=== PATIENT | female | born 1970 | race Caucasian/White ===

== ENCOUNTER → 2017-09-02 | Outpatient (CLI) | payer OTHER ==
[2017-09-02 14:22] LABS: VITAMIN D, 25-HYDROXY 23.7 ng/mL (30-100)
[2017-09-03 13:04] LABS: ANTI-DSDNA ANTIBODIES 096339 <1 IU/mL (0-9); ANTISCLERODERMA-70 AB 0.5 AI (0.0-0.9)
== END | disposition home or self-care (01) ==
LOC: LAB 10:59
PROVIDERS: Family Medicine
DX: M79.1 Myalgia (principal); M25.50 Pain in unspecified joint; R53.83 Other fatigue; E55.9 Vitamin D deficiency, unspecified

== ENCOUNTER → 2018-03-01 | Outpatient (CLI) | payer OTHER ==
[2018-03-02 08:31] LABS: RHEUMATOID ARTHRITIS FACTOR <10.0 IU/mL (0.0-13.9)
[2018-03-03 00:03] LABS: CCP ANTIBODIES IGG/IGA 7 units (0-19)
== END | disposition home or self-care (01) ==
LOC: LAB 13:13
PROVIDERS: Family Medicine
DX: M79.672 Pain in left foot (principal); M79.671 Pain in right foot; M79.642 Pain in left hand; M79.641 Pain in right hand; E55.9 Vitamin D deficiency, unspecified

== ENCOUNTER → 2018-10-17 | Outpatient (CLI) | payer OTHER ==
[2018-10-17 10:24] LABS: HEMATOCRIT 40.5 % (37.0-47.0); HEMOGLOBIN 13.4 g/dl (12.0-16.0); MEAN CORPUSCULAR HGB 31.8 pg (27.0-31.0); MEAN CORPUSCULAR HGB CONC 33.1 g/dl (33.0-37.0); MEAN PLATELET VOLUME 9.3 fl (9.6-12.3); RED BLOOD COUNT 4.22 10*6/uL (4.10-5.10); RED CELL DISTRI WIDTH 12.6 % (0-14.5); WHITE BLOOD COUNT 7.1 10*3/uL (4.8-10.8)
[2018-10-17 10:50] LABS: ALBUMIN 3.4 gm/dl (3.1-4.5); BUN 13 mg/dl (7-24); CHLORIDE 109 mmol/L (98-107); CHOLESTEROL 188 mg/dL (<200); CREATININE 0.75 mg/dL (0.55-1.02); HDL CHOLESTEROL 28 mg/dl (40-60); LDL CHOLESTEROL 111 mg/dL (9-159); POTASSIUM 4.4 mmol/L (3.5-5.1); SGOT/AST 28 IU/L (3-35); SGPT/ALT 31 U/L (12-78); SODIUM 141 mmol/L (136-145); TRIGLYCERIDES 244 mg/dl (<150); VLDL CHOLESTEROL 49 mg/dL (6-40)
[2018-10-17 10:51] LABS: ALKALINE PHOSPHATASE 71 U/L (45-117); TOTAL PROTEIN 6.9 gm/dL (6.4-8.2)
== END | disposition home or self-care (01) ==
LOC: LAB 09:50
PROVIDERS: Family Medicine
DX: Z13.220 Encounter for screening for lipoid disorders (principal); E55.9 Vitamin D deficiency, unspecified; L94.9 Localized connective tissue disorder, unspecified; R53.83 Other fatigue

== ENCOUNTER 2020-04-09 15:35 | Emergency (ER) | payer OTHER ==
[~2020-04-09] VITALS: Wt 62.6 kg
[2020-04-09] MEDS ORDERED: VIBRAMYCIN100 MG PO (16:53)
[2020-04-09] MEDS ORDERED: NAPROSYN500 MG PO (16:53)
== END 2020-04-09 17:04 | disposition home or self-care (01) ==
LOC: ED 15:35
DX: M54.2 Cervicalgia (principal); Z88.2 Allergy status to sulfonamides

== ENCOUNTER → 2020-04-09 | Outpatient (CLI) | payer OTHER ==
[~2020-04-09] MED LIST: NAPROSYN500 MG PO; VIBRAMYCIN100 MG PO
[2020-04-09 13:26] LABS: HEMATOCRIT 44.2 % (37.0-47.0); MEAN CORPUSCULAR HGB 30.9 pg (27.0-31.0); MEAN CORPUSCULAR HGB CONC 32.8 g/dl (33.0-37.0); MEAN PLATELET VOLUME 9.1 fl (9.6-12.3); RED BLOOD COUNT 4.7 10*6/uL (4.10-5.10); RED CELL DISTRI WIDTH 12.2 % (0-14.5); WHITE BLOOD COUNT 10.3 10*3/uL (4.8-10.8)
[2020-04-09 13:58] LABS: ALBUMIN 4.1 gm/dl (3.1-4.5); ALKALINE PHOSPHATASE 61 U/L (45-117); BUN 12 mg/dl (7-24); CHLORIDE 104 mmol/L (98-107); CREATININE 0.74 mg/dL (0.55-1.02); POTASSIUM 4.3 mmol/L (3.5-5.1); SGOT/AST 20 IU/L (3-35); SGPT/ALT 23 U/L (12-78); SODIUM 132 mmol/L (136-145); TOTAL PROTEIN 7.8 gm/dL (6.4-8.2)
[2020-04-10 08:12] LABS: RHEUMATOID ARTHRITIS FACTOR <10.0 IU/mL (0.0-13.9)
[2020-04-10 14:10] LABS: ANTI-DSDNA ANTIBODIES <1 IU/mL (0-9)
== END | disposition home or self-care (01) ==
LOC: LAB 13:10
PROVIDERS: Family Medicine
DX: R53.83 Other fatigue (principal); M25.50 Pain in unspecified joint; M79.10 Myalgia, unspecified site

== ENCOUNTER 2020-06-13 19:21 | Emergency (ER) | payer OTHER ==
[~2020-06-13] VITALS: Ht 167.6 cm; Wt 61.2 kg
[2020-06-13] MEDS ORDERED: MEDROL DOSEPAK4 MG PO (20:15)
[2020-06-13] MEDS ORDERED: CEPHALEXIN500 M1 PO (20:15)
== END 2020-06-13 20:34 | disposition home or self-care (01) ==
LOC: ED 19:21
DX: T63.441A Toxic effect of venom of bees, accidental (unintentional), initial encounter (principal); Z88.2 Allergy status to sulfonamides; Z79.899 Other long term (current) drug therapy; Y92.89 Other specified places as the place of occurrence of the external cause

== ENCOUNTER → 2021-07-29 | Outpatient (CLI) | payer OTHER ==
[~2021-07-29] MED LIST changes: +CEPHALEXIN500 M1 PO; +MEDROL DOSEPAK4 MG PO
== END | disposition home or self-care (01) ==
LOC: COVID19 15:38
PROVIDERS: ATTEND Student in an Organized Health Care Education/Training Program
DX: Z11.52 Encounter for screening for COVID-19 (principal)

== ENCOUNTER 2022-02-26 20:36 | Emergency (ER) | payer OTHER ==
[~2022-02-26] VITALS: Ht 167.6 cm; Wt 52.2 kg
[2022-02-26 23:03] LABS: BILIRUBIN Negative (Negative); BLOOD Negative (Negative); CLARITY Clear (Clear); COLOR Yellow (Yellow); GLUCOSE Negative (Negative); KETONE Negative (Negative); LEUKO ESTERASE Negative (Negative); NITRITE Negative (Negative); PH 5.5 (4.5-8.0); UROBILINOGEN 0.2 E.U./dl (0.0-1.0)
[2022-02-26 23:17] LABS: MUCOUS 1+; WBC 0-2 wbc/hpf (0-5)
[2022-02-26 23:21] LABS: BASO # 0.1 10*3/uL (0.0-0.1); BASO % 0.5 % (0.0-1.0); EOS # 0.3 10*3/uL (0.0-0.4); EOS % 3.4 % (1.0-4.0); HEMATOCRIT 36.5 % (37.0-47.0); LYMPH # 0.4 10*3/uL (1.3-4.4); LYMPH % 3.9 % (27.0-41.0); MEAN CELL VOLUME 91.7 fl (81.0-99.0); MEAN CORPUSCULAR HGB 31.4 pg (27.0-31.0); MEAN CORPUSCULAR HGB CONC 34.2 g/dl (33.0-37.0); MEAN PLATELET VOLUME 9.6 fl (9.6-12.3); MONO # 0.7 10*3/uL (0.1-1.0); MONO % 7.9 % (3.0-9.0); NEUT # 7.7 10*3/uL (2.3-7.9); NEUT % 83.9 % (47.0-73.0); PLATELET COUNT AUTOMATED 239 10*3/uL (130-400); RED BLOOD COUNT 3.98 10*6/uL (4.10-5.10); RED CELL DISTRI WIDTH 13.4 % (0-14.5); WHITE BLOOD COUNT 9.2 10*3/uL (4.8-10.8)
[2022-02-26 23:39] LABS: ALKALINE PHOSPHATASE 47 U/L (45-117); BUN 9 mg/dl (7-24); CHLORIDE 108 mmol/L (98-107); CREATININE 0.56 mg/dL (0.55-1.02); POTASSIUM 3.8 mmol/L (3.5-5.1); SGOT/AST 23 IU/L (3-35); SGPT/ALT 17 U/L (12-78); SODIUM 136 mmol/L (136-145); TOTAL PROTEIN 6.4 gm/dL (6.4-8.2)
== END 2022-02-27 06:34 | disposition home or self-care (01) ==
LOC: ED 20:36
PROVIDERS: Emergency Medicine
DX: U07.1 COVID-19 (principal); B34.9 Viral infection, unspecified; Z88.2 Allergy status to sulfonamides; F17.200 Nicotine dependence, unspecified, uncomplicated

== ENCOUNTER → 2022-04-14 | Outpatient (CLI) | payer OTHER ==
[2022-04-14 13:40] LABS: HEMATOCRIT 40.5 % (37.0-47.0); MEAN CELL VOLUME 95.3 fl (81.0-99.0); MEAN CORPUSCULAR HGB 31.3 pg (27.0-31.0); MEAN CORPUSCULAR HGB CONC 32.8 g/dl (33.0-37.0); MEAN PLATELET VOLUME 9.6 fl (9.6-12.3); RED BLOOD COUNT 4.25 10*6/uL (4.10-5.10); RED CELL DISTRI WIDTH 12.9 % (0-14.5); WHITE BLOOD COUNT 7.5 10*3/uL (4.8-10.8)
[2022-04-14 13:58] LABS: ALKALINE PHOSPHATASE 54 U/L (45-117); BUN 14 mg/dl (7-24); CHLORIDE 108 mmol/L (98-107); CHOLESTEROL 147 mg/dL (<200); CREATININE 0.68 mg/dL (0.55-1.02); FREE T4 0.82 ng/dl (0.76-1.46); LDL CHOLESTEROL 82 mg/dL (9-159); POTASSIUM 4.1 mmol/L (3.5-5.1); SGOT/AST 21 IU/L (3-35); SGPT/ALT 21 U/L (12-78); SODIUM 140 mmol/L (136-145); TOTAL PROTEIN 7.2 gm/dL (6.4-8.2); TRIGLYCERIDES 146 mg/dl (<150)
[2022-04-14 14:31] LABS: VITAMIN D, 25-HYDROXY 28.8 ng/mL (30-100)
[2022-04-15 08:07] LABS: FOLLICLE STIMULATING HORMONE 94.5 mIU/mL (.)
[2022-04-15 09:07] LABS: LUTEINIZING HORMONE 65.2 mIU/mL (.)
[2022-04-15 10:07] LABS: HBSAG Negative (Negative); HEP B CORE AB, IGM Negative (Negative); HEPATITIS C ANTIBODY <0.1 (0.0-0.9)
== END | disposition home or self-care (01) ==
LOC: LAB 13:17
PROVIDERS: ATTEND Family Medicine
DX: Z00.00 Encounter for general adult medical examination without abnormal findings (principal); Z11.59 Encounter for screening for other viral diseases; F39 Unspecified mood [affective] disorder; N95.1 Menopausal and female climacteric states; R53.83 Other fatigue; R61 Generalized hyperhidrosis; E55.9 Vitamin D deficiency, unspecified

== ENCOUNTER → 2023-02-18 | Outpatient (CLI) | payer OTHER ==
[2023-02-18 14:12] LABS: HEMATOCRIT 40.6 % (37.0-47.0); MEAN CELL VOLUME 97.6 fl (81.0-99.0); MEAN CORPUSCULAR HGB 31.5 pg (27.0-31.0); MEAN CORPUSCULAR HGB CONC 32.3 g/dl (33.0-37.0); MEAN PLATELET VOLUME 9.4 fl (9.6-12.3); RED BLOOD COUNT 4.16 10*6/uL (4.10-5.10); RED CELL DISTRI WIDTH 13.1 % (0-14.5); WHITE BLOOD COUNT 7.5 10*3/uL (4.8-10.8)
[2023-02-18 14:39] LABS: ALKALINE PHOSPHATASE 70 U/L (46-116); BUN 13 mg/dl (9-23); CHLORIDE 103 mmol/L (98-107); FREE T4 0.75 ng/dl (0.89-1.76); POTASSIUM 4.5 mmol/L (3.4-5.1); SGPT/ALT 23 U/L (10-49); THYROID STIM HORMONE (HS) 2.301 uIU/ml (0.550-4.780); TOTAL PROTEIN 7.1 gm/dL (6.0-8.0)
[2023-02-18 14:54] LABS: VITAMIN D, 25-HYDROXY 34.2 ng/mL (30-100)
[2023-02-19 06:08] LABS: HBSAG Negative (Negative); HEP B CORE AB, IGM Negative (Negative); HEPATITIS C ANTIBODY Non Reactive (Non Reactive)
[2023-02-21 16:08] LABS: SJOGREN ANTI-SS-A <0.2 AI (0.0-0.9); SJOREN AB, ANTI-SS-B <0.2 AI (0.0-0.9)
== END | disposition home or self-care (01) ==
LOC: LAB 13:52
PROVIDERS: ATTEND Family Medicine
DX: E55.9 Vitamin D deficiency, unspecified (principal); M79.10 Myalgia, unspecified site; L65.9 Nonscarring hair loss, unspecified; R53.83 Other fatigue

== ENCOUNTER 2023-05-07 00:19 | Emergency (ER) | payer OTHER ==
[~2023-05-07] VITALS: Ht 167.6 cm; Wt 59.0 kg
[2023-05-07 01:08] LABS: BASO # 0.1 10*3/uL (0.0-0.1); EOS # 0.4 10*3/uL (0.0-0.4); EOS % 5.7 % (1.0-4.0); HEMATOCRIT 40.9 % (37.0-47.0); LYMPH # 1.8 10*3/uL (1.3-4.4); LYMPH % 24.7 % (27.0-41.0); MEAN CELL VOLUME 96.5 fl (81.0-99.0); MEAN CORPUSCULAR HGB 31.8 pg (27.0-31.0); MEAN PLATELET VOLUME 9.3 fl (9.6-12.3); MONO # 0.8 10*3/uL (0.1-1.0); MONO % 11.5 % (3.0-9.0); NEUT # 4.2 10*3/uL (2.3-7.9); NEUT % 56.8 % (47.0-73.0); PLATELET COUNT AUTOMATED 351 10*3/uL (130-400); RED BLOOD COUNT 4.24 10*6/uL (4.10-5.10); RED CELL DISTRI WIDTH 13.2 % (0-14.5); WHITE BLOOD COUNT 7.3 10*3/uL (4.8-10.8)
[2023-05-07 01:20] LABS: ACT PARTIAL THROMBO TIME 31.7 SECONDS (20.0-32.1)
[2023-05-07 01:27] LABS: ALKALINE PHOSPHATASE 51 U/L (46-116); BUN 16 mg/dl (9-23); CHLORIDE 110 mmol/L (98-107); LIPASE 59 U/L (12-53); POTASSIUM 3.4 mmol/L (3.4-5.1); SGPT/ALT 11 U/L (10-49); TOTAL PROTEIN 6.5 gm/dL (6.0-8.0)
[2023-05-07] MEDS ORDERED: VIBRAMYCIN100 MG PO (03:31)
== END 2023-05-07 03:53 | disposition home or self-care (01) ==
LOC: ED 00:19
PROVIDERS: Internal Medicine
DX: L03.312 Cellulitis of back [any part except buttock and flank] (principal); Z88.2 Allergy status to sulfonamides

== ENCOUNTER → 2023-08-23 | Outpatient (CLI) | payer OTHER ==
[2023-08-23 13:30] LABS: HEMATOCRIT 41.4 % (37.0-47.0); MEAN CORPUSCULAR HGB CONC 31.6 g/dl (33.0-37.0); MEAN PLATELET VOLUME 9.7 fl (9.6-12.3); RED BLOOD COUNT 4.36 10*6/uL (4.10-5.10); WHITE BLOOD COUNT 9.2 10*3/uL (4.8-10.8)
[2023-08-23 13:57] LABS: FREE T4 0.84 ng/dl (0.89-1.76)
[2023-08-24 11:07] LABS: ANTISCLERODERMA-70 AB <0.2 AI (0.0-0.9); SJOGREN ANTI-SS-A <0.2 AI (0.0-0.9); SJOREN AB, ANTI-SS-B <0.2 AI (0.0-0.9)
== END | disposition home or self-care (01) ==
LOC: LAB 12:53
PROVIDERS: ATTEND Family Medicine
DX: R51.9 Headache, unspecified (principal); R60.9 Edema, unspecified; M79.10 Myalgia, unspecified site; M25.50 Pain in unspecified joint

== ENCOUNTER → 2023-11-08 | Outpatient (CLI) | payer OTHER ==
[2023-11-08 15:58] LABS: HEMATOCRIT 40.6 % (37.0-47.0); MEAN CELL VOLUME 93.3 fl (81.0-99.0); MEAN CORPUSCULAR HGB 29.7 pg (27.0-31.0); MEAN CORPUSCULAR HGB CONC 31.8 g/dl (33.0-37.0); MEAN PLATELET VOLUME 9.5 fl (9.6-12.3); RED BLOOD COUNT 4.35 10*6/uL (4.10-5.10); RED CELL DISTRI WIDTH 14.1 % (0-14.5); WHITE BLOOD COUNT 7.1 10*3/uL (4.8-10.8)
[2023-11-09 12:08] LABS: ANTI-DSDNA ANTIBODIES <1 IU/mL (0-9); ANTISCLERODERMA-70 AB <0.2 AI (0.0-0.9)
[2023-11-11 02:07] LABS: TESTOSTERONE FREE, (DIRECT) <0.2 pg/mL (0.0-4.2)
== END | disposition home or self-care (01) ==
LOC: LAB 15:31
PROVIDERS: ATTEND Family Medicine
DX: M79.10 Myalgia, unspecified site (principal); R21 Rash and other nonspecific skin eruption; M25.50 Pain in unspecified joint; R60.9 Edema, unspecified

== ENCOUNTER → 2024-02-13 | Outpatient (CLI) | payer OTHER | END | disposition home or self-care (01) | LOC: RAD 13:30 | PROVIDERS: ATTEND Internal Medicine Rheumatology | DX: Z13.820 Encounter for screening for osteoporosis (principal); Z51.81 Encounter for therapeutic drug level monitoring; Z79.52 Long term (current) use of systemic steroids; N95.1 Menopausal and female climacteric states; E55.9 Vitamin D deficiency, unspecified ==

== ENCOUNTER → 2024-04-04 | Outpatient (CLI) | payer OTHER ==
[2024-04-04 11:26] LABS: BASO # 0.1 10*3/uL (0.0-0.1); BASO % 1.7 % (0.0-1.0); EOS # 0.3 10*3/uL (0.0-0.4); EOS % 6.5 % (1.0-4.0); HEMATOCRIT 36.5 % (37.0-47.0); LYMPH # 1.7 10*3/uL (1.3-4.4); LYMPH % 32.3 % (27.0-41.0); MEAN CELL VOLUME 99.7 fl (81.0-99.0); MEAN CORPUSCULAR HGB 33.3 pg (27.0-31.0); MEAN CORPUSCULAR HGB CONC 33.4 g/dl (33.0-37.0); MEAN PLATELET VOLUME 9.7 fl (9.6-12.3); MONO # 0.7 10*3/uL (0.1-1.0); MONO % 12.4 % (3.0-9.0); NEUT # 2.5 10*3/uL (2.3-7.9); NEUT % 46.9 % (47.0-73.0); PLATELET COUNT AUTOMATED 299 10*3/uL (130-400); RED BLOOD COUNT 3.66 10*6/uL (4.10-5.10); RED CELL DISTRI WIDTH 17.2 % (0-14.5); WHITE BLOOD COUNT 5.2 10*3/uL (4.8-10.8)
[2024-04-04 11:42] LABS: URINE CREATININE RANDOM 122.92 mg/dL
[2024-04-05 13:07] LABS: ANTI-DSDNA ANTIBODIES <1 IU/mL (0-9)
== END | disposition home or self-care (01) ==
LOC: LAB 10:52
PROVIDERS: ATTEND Internal Medicine Rheumatology
DX: M35.9 Systemic involvement of connective tissue, unspecified (principal); I73.00 Raynaud's syndrome without gangrene; R53.81 Other malaise; Z79.899 Other long term (current) drug therapy; Z79.52 Long term (current) use of systemic steroids

== ENCOUNTER → 2024-07-12 | Outpatient (CLI) | payer OTHER ==
[2024-07-12 10:34] LABS: HEMATOCRIT 36.9 % (37.0-47.0); MEAN CELL VOLUME 104.8 fl (81.0-99.0); MEAN CORPUSCULAR HGB 34.7 pg (27.0-31.0); MEAN CORPUSCULAR HGB CONC 33.1 g/dl (33.0-37.0); MEAN PLATELET VOLUME 9.2 fl (9.6-12.3); RED BLOOD COUNT 3.52 10*6/uL (4.10-5.10); RED CELL DISTRI WIDTH 15.3 % (0-14.5); WHITE BLOOD COUNT 4.5 10*3/uL (4.8-10.8)
[2024-07-12 10:58] LABS: ALKALINE PHOSPHATASE 95 U/L (46-116); BUN 12 mg/dl (9-23); CHLORIDE 105 mmol/L (98-107); FREE T4 0.87 ng/dl (0.89-1.76); POTASSIUM 4.1 mmol/L (3.4-5.1); SGPT/ALT 27 U/L (5-49); TOTAL PROTEIN 6.7 gm/dL (6.0-8.0)
[2024-07-12 11:10] LABS: VITAMIN D, 25-HYDROXY 62.3 ng/mL (30-100)
== END | disposition home or self-care (01) ==
LOC: LAB 10:12
PROVIDERS: ATTEND Family Medicine
DX: R53.83 Other fatigue (principal); R60.9 Edema, unspecified

== ENCOUNTER 2024-11-15 11:41 | Emergency (ER) | payer OTHER ==
[~2024-11-15] VITALS: Ht 167.6 cm; Wt 56.7 kg
[2024-11-15] MEDS ORDERED: diphenhydrAMINE hydrochloride 50 MG/ML VIAL IV ONE (12:15)
[2024-11-15] MEDS ORDERED: Ketorolac Tromethamine 30 MG/ML VIAL IV ONE (12:15)
[2024-11-15] MEDS ORDERED: Metoclopramide Hydrochloride 10 MG/2 ML VIAL IV ONE (12:15)
[2024-11-15] MEDS ORDERED: SODIUM CHLORIDE 0.9% 1,000 ML IV ONE (12:15)
[2024-11-15] MEDS ORDERED: Dexamethasone Sodium Phospha 20 MG/5 ML VIAL IV ONE (12:15)
[2024-11-15 12:33] LABS: BASO # 0.1 10*3/uL (0.0-0.1); BASO % 0.9 % (0.0-1.0); EOS # 0.4 10*3/uL (0.0-0.4); EOS % 6.8 % (1.0-4.0); HEMATOCRIT 36.5 % (37.0-47.0); MEAN CELL VOLUME 97.3 fl (81.0-99.0); MEAN CORPUSCULAR HGB 30.9 pg (27.0-31.0); MEAN CORPUSCULAR HGB CONC 31.8 g/dl (33.0-37.0); MEAN PLATELET VOLUME 9.3 fl (9.6-12.3); MONO # 0.5 10*3/uL (0.1-1.0); MONO % 9.4 % (3.0-9.0); NEUT # 3.6 10*3/uL (2.3-7.9); NEUT % 64.2 % (47.0-73.0); PLATELET COUNT AUTOMATED 283 10*3/uL (130-400); RED BLOOD COUNT 3.75 10*6/uL (4.10-5.10); RED CELL DISTRI WIDTH 13.2 % (0-14.5); WHITE BLOOD COUNT 5.6 10*3/uL (4.8-10.8)
[2024-11-15 13:43] LABS: BUN 14 mg/dl (9-23); CHLORIDE 107 mmol/L (98-107); POTASSIUM 4.4 mmol/L (3.4-5.1)
== END 2024-11-15 14:17 | disposition home or self-care (01) ==
LOC: ED 11:41
PROVIDERS: Physician Assistant Medical
DX: R51.9 Headache, unspecified (principal); R42 Dizziness and giddiness; R11.0 Nausea; R21 Rash and other nonspecific skin eruption; Z88.2 Allergy status to sulfonamides

== ENCOUNTER 2025-05-14 15:23 | Emergency (ER) | payer OTHER ==
[~2025-05-14] VITALS: Ht 167.6 cm; Wt 56.3 kg
[2025-05-14] MEDS ORDERED: Metoclopramide Hydrochloride 10 MG/2 ML VIAL IV ONE (15:55)
[2025-05-14] MEDS ORDERED: Ondansetron Hydrochloride 4 MG/2 ML VIAL IV ONE (15:55)
[2025-05-14] MEDS ORDERED: diphenhydrAMINE hydrochloride 50 MG/ML VIAL IV ONE (15:55)
[2025-05-14 16:29] LABS: MEAN CELL VOLUME 91.2 fl (81.0-99.0); MEAN CORPUSCULAR HGB 29.6 pg (27.0-31.0); MEAN PLATELET VOLUME 11.5 fl (9.6-12.3); NUCLEATED RED BLOOD CELL 0.0 % (0.0-0.0); NUCLEATED RED BLOOD CELL 0.0 10*3/uL (0.0-0.0); PLATELET COUNT AUTOMATED 148 10*3/uL (130-400); RED CELL DISTRI WIDTH 16.3 % (0-14.5)
[2025-05-14 16:54] LABS: BUN 39.0 mg/dl (9-23); CPK 29.0 U/L (34-171); MANUAL DIFF REFLEX YES; SGPT/ALT 9.0 U/L (5-49)
[2025-05-14 16:58] LABS: PLATELET SUFFICIENCY NORMAL (NORMAL)
[2025-05-14 17:01] LABS: BILIRUBIN Negative (Negative); BLOOD 2+ (Negative); CLARITY Clear (Clear); COLOR Yellow (Yellow); KETONE Negative (Negative); LEUKO ESTERASE Trace (Negative); NITRITE Negative (Negative); PH 5.5 (4.5-8.0); SPECIFIC GRAVITY 1.015 (1.001-1.030); UROBILINOGEN 0.2 E.U./dl (0.0-1.0)
[2025-05-14 17:10] LABS: URINE AMPHETAMINES Negative (1000ng/ml); URINE BARBITURATES Negative (200ng/ml); URINE BENZODIAZEPINES Negative (200ng/ml); URINE CANNABINOIDS (THC) Negative (50ng/ml); URINE COCAINE Negative (300ng/ml); URINE METHADONE Negative (300ng/ml); URINE OPIATES Negative (300ng/ml); URINE PHENCYCLIDINE Negative (25ng/ml)
[2025-05-14 17:20] LABS: BACTERIA 1+; EPITHELIAL CELLS 21-30; FINE GRANULAR CAST 0-2; RBC 16-20 rbc/hpf (0-2); WBC 31-40 wbc/hpf (0-5)
[2025-05-14] MEDS ORDERED: SODIUM CHLORIDE 0.9% 500 ML IV ONE (17:35)
[2025-05-14] MEDS ORDERED: Labetalol Hydrochloride 20 MG/4 ML SYR IV ONE (17:35)
[2025-05-14] MEDS ORDERED: ASPIRIN 325 MG ENTERIC COATED PO ONE (17:55)
[2025-05-14 18:09] LABS: ACT PARTIAL THROMBO TIME 26.3 SECONDS (20.0-32.1)
[2025-05-14] MEDS ORDERED: hydrALAZINE hydrochloride 20 MG/ML VIAL IV ONE (19:00)
[2025-05-14] MEDS ORDERED: SODIUM CHLORIDE 0.9% 1,000 ML IV ONE (22:30)
[2025-05-14] MEDS ORDERED: POTASSIUM CHLORIDE 20 MEQ TAB PO ONE (22:30)
== END 2025-05-14 23:11 | disposition short-term general hospital (02) ==
LOC: ED 15:23
PROVIDERS: Emergency Medicine
DX: I63.532 Cerebral infarction due to unspecified occlusion or stenosis of left posterior cerebral artery (principal); N17.9 Acute kidney failure, unspecified; R51.9 Headache, unspecified; I16.1 Hypertensive emergency; I21.4 Non-ST elevation (NSTEMI) myocardial infarction; N39.0 Urinary tract infection, site not specified; Z88.2 Allergy status to sulfonamides; Z79.899 Other long term (current) drug therapy

== ENCOUNTER 2025-05-21 13:35 | Emergency (ER) | payer OTHER ==
[~2025-05-21] VITALS: Ht 167.6 cm; Wt 59.0 kg
[2025-05-21] MEDS ORDERED: CARVEDILOL12.5 MG PO (13:43)
[2025-05-21] MEDS ORDERED: PREDNISONE20 M1 PO (13:43)
[2025-05-21] MEDS ORDERED: LISINOPRIL40 MG PO (13:43)
[2025-05-21] MEDS ORDERED: AMLODIPINE BESY10 MG PO (13:43)
[2025-05-21] MEDS ORDERED: HYDRALAZINE HC100 MG PO (13:43)
[2025-05-21] MEDS ORDERED: SODIUM CHLORIDE 0.9% 1,000 ML IV ONE (13:55)
[2025-05-21 14:17] LABS: MANUAL DIFF REFLEX YES; MEAN CELL VOLUME 93.1 fl (81.0-99.0); MEAN CORPUSCULAR HGB 30.0 pg (27.0-31.0); MEAN PLATELET VOLUME 12.8 fl (9.6-12.3); NUCLEATED RED BLOOD CELL 0.0 % (0.0-0.0); NUCLEATED RED BLOOD CELL 0.0 10*3/uL (0.0-0.0); PLATELET COUNT AUTOMATED 130 10*3/uL (130-400); RED CELL DISTRI WIDTH 17.7 % (0-14.5)
[2025-05-21 14:40] LABS: PLATELET SUFFICIENCY NORMAL (NORMAL)
[2025-05-21 14:44] LABS: BUN 92.0 mg/dl (9-23); CPK 44.0 U/L (34-171)
[2025-05-21 15:34] LABS: BILIRUBIN Negative (Negative); BLOOD Negative (Negative); CLARITY Clear (Clear); COLOR Yellow (Yellow); KETONE Negative (Negative); LEUKO ESTERASE Negative (Negative); NITRITE Negative (Negative); PH 5.5 (4.5-8.0); SPECIFIC GRAVITY 1.015 (1.001-1.030); UROBILINOGEN 0.2 E.U./dl (0.0-1.0)
[2025-05-21 15:46] LABS: BACTERIA 2+; COARSE GRANULAR CAST 0-2; RBC 0-2 rbc/hpf (0-2); WBC 0-2 wbc/hpf (0-5)
== END 2025-05-21 20:30 | disposition short-term general hospital (02) ==
LOC: ED 13:35
PROVIDERS: Emergency Medicine
DX: I21.4 Non-ST elevation (NSTEMI) myocardial infarction (principal); E86.0 Dehydration; I67.83 Posterior reversible encephalopathy syndrome; R53.1 Weakness; N17.9 Acute kidney failure, unspecified; R20.0 Anesthesia of skin; Z88.2 Allergy status to sulfonamides; Z79.899 Other long term (current) drug therapy

== ENCOUNTER → 2025-07-01 | Outpatient (CLI) | payer OTHER ==
[~2025-07-01] MED LIST changes: +AMLODIPINE BESY10 MG PO; +CARVEDILOL12.5 MG PO; +HYDRALAZINE HC100 MG PO; +LISINOPRIL40 MG PO; +PREDNISONE20 M1 PO
[2025-07-01 10:04] LABS: MEAN CELL VOLUME 98.7 fl (81.0-99.0); MEAN CORPUSCULAR HGB 31.7 pg (27.0-31.0); MEAN PLATELET VOLUME 9.4 fl (9.6-12.3); NUCLEATED RED BLOOD CELL 0.0 % (0.0-0.0); NUCLEATED RED BLOOD CELL 0.0 10*3/uL (0.0-0.0); PLATELET COUNT AUTOMATED 174.0 10*3/uL (130-400); RED CELL DISTRI WIDTH 14.9 % (0-14.5)
[2025-07-01 10:05] LABS: BILIRUBIN Negative (Negative); BLOOD 1+ (Negative); CLARITY Cloudy (Clear); COLOR Yellow (Yellow); KETONE Negative (Negative); LEUKO ESTERASE 1+ (Negative); NITRITE Negative (Negative); PH 5.5 (4.5-8.0); SPECIFIC GRAVITY 1.015 (1.001-1.030); UROBILINOGEN 0.2 E.U./dl (0.0-1.0)
[2025-07-01 10:23] LABS: BUN 38.0 mg/dl (9-23); SGPT/ALT 17.0 U/L (5-49)
[2025-07-01 10:45] LABS: BACTERIA 2+
[2025-07-01 11:19] LABS: VITAMIN D, 25-HYDROXY 29.6 ng/mL (30-100)
== END | disposition home or self-care (01) ==
LOC: LAB 09:39
PROVIDERS: ATTEND Internal Medicine
DX: I12.9 Hypertensive chronic kidney disease with stage 1 through stage 4 chronic kidney disease, or unspecified chronic kidney disease (principal); N18.4 Chronic kidney disease, stage 4 (severe); E55.9 Vitamin D deficiency, unspecified

== ENCOUNTER 2025-07-16 16:21 | Emergency (ER) | payer OTHER ==
[~2025-07-16] VITALS: Ht 167.6 cm; Wt 58.1 kg
[2025-07-16] MEDS ORDERED: SODIUM BICARBO650 MG PO (16:40)
[2025-07-16] MEDS ORDERED: AMLODIPINE BESYL5 MG PO (16:40)
[2025-07-16] MEDS ORDERED: LASIX20 MG PO (16:41)
[2025-07-16] MEDS ORDERED: VITAMIN B121000 MC3 PO (16:41)
[2025-07-16] MEDS ORDERED: NATURE'S BLEND F1 MG PO (16:41)
[2025-07-16] MEDS ORDERED: VAZALORE81 MG PO (16:42)
[2025-07-16] MEDS ORDERED: COREG25 MG PO (16:42)
[2025-07-16 17:30] LABS: MANUAL DIFF REFLEX YES; MEAN CELL VOLUME 97.5 fl (81.0-99.0); MEAN CORPUSCULAR HGB 31.6 pg (27.0-31.0); MEAN PLATELET VOLUME 9.5 fl (9.6-12.3); NUCLEATED RED BLOOD CELL 0.0 % (0.0-0.0); NUCLEATED RED BLOOD CELL 0.0 10*3/uL (0.0-0.0); PLATELET COUNT AUTOMATED 233 10*3/uL (130-400); RED CELL DISTRI WIDTH 14.1 % (0-14.5)
[2025-07-16 17:53] LABS: PLATELET SUFFICIENCY NORMAL (NORMAL)
[2025-07-16 17:57] LABS: BUN 62.0 mg/dl (9-23); SGPT/ALT 18.0 U/L (5-49)
[2025-07-16] MEDS ORDERED: Lactated Ringer's Solution 500 ML IV SCH (18:45)
[2025-07-16 18:50] LABS: BILIRUBIN Negative (Negative); CLARITY Cloudy (Clear); COLOR Yellow (Yellow); KETONE Negative (Negative); SPECIFIC GRAVITY 1.020 (1.001-1.030)
[2025-07-16] MEDS ORDERED: POTASSIUM CHLORIDE 20 MEQ TAB PO ONE (18:50)
[2025-07-16 18:51] LABS: BLOOD Trace-Lysed (Negative); LEUKO ESTERASE Negative (Negative); NITRITE Negative (Negative); PH 6.0 (4.5-8.0); UROBILINOGEN 0.2 E.U./dl (0.0-1.0)
[2025-07-16 18:57] LABS: BACTERIA 1+; MUCOUS TRACE; WBC 0-2 wbc/hpf (0-5)
== END 2025-07-17 06:02 | disposition short-term general hospital (02) ==
LOC: ED 16:21
PROVIDERS: Emergency Medicine
DX: N17.9 Acute kidney failure, unspecified (principal); N18.9 Chronic kidney disease, unspecified; Z88.2 Allergy status to sulfonamides